=== PATIENT | female | born 1990 | race African-American/Black ===

== ENCOUNTER 2020-03-03 00:03 | Inpatient (IN) | payer MEDICAID ==
[~2020-03-03] VITALS: Ht 165.1 cm; Wt 84.4 kg
[2020-03-03] MEDS ORDERED: DEXT 5%/LR + PITOCIN 20UNITS/L 1,000 ML IV SCH (01:27)
[2020-03-03] MEDS ORDERED: PNV1TABL76 PO (01:28)
[2020-03-03] MEDS ORDERED: NALOXONE HCL 0.4 MG/ML 1ML VIAL IM PRN (01:30)
[2020-03-03] MEDS ORDERED: METHYLERGONOVINE MALEATE 0.2 MG/ML IM PRN (01:30)
[2020-03-03] MEDS ORDERED: CARBOPROST TROMETHAMINE 250 MCG/ML AMPUL IM PRN (01:30)
[2020-03-03] MEDS ORDERED: LIDOCAINE HCL 1% 20ML VIAL (Pyxis) INJ INFIL SCH (01:30)
[2020-03-03] MEDS ORDERED: BUTORPHANOL TARTRATE 2 MG/ML VIAL IV PRN (01:30)
[2020-03-03 03:02] LABS: BASOPHILS % 0.5 % (0.0-2.0); EOSINOPHILS % 0.7 % (0.0-5.0); HEMATOCRIT. 32.9 % (36.0-48.0); HEMOGLOBIN. 11.1 g/dL (12.0-16.0); LYMPHOCYTES % 26.1 % (20.0-50.0); MEAN CORPUSCULAR VOLUME 94.7 fL (81.0-99.0); MEAN PLATELET VOLUME 9.2 fl (7.4-10.4); MONOCYTES % 7.2 % (2.0-8.0); NEUTROPHILS % 65.5 % (40.0-76.0); PLATELET 185 x1000/uL (130-400); RED BLOOD CELL COUNT 3.47 mill/uL (4.2-5.4); RED CELL DISTRIBUTION WIDTH 15.7 % (11.6-14.6)
[2020-03-03 03:12] LABS: INR 0.9; PARTIAL THROMBOPLASTIN TIME 23.6 sec (23.4-31.0); PROTHROMBIN TIME 9.8 sec (9.6-11.0)
[2020-03-03 03:37] LABS: HEPATITIS B SURFACE ANTIGEN NEGATIVE
[2020-03-03] MEDS ORDERED: DEXT 5%/LR + PITOCIN 20UNITS/L 1,000 ML IV ONE (05:45)
[2020-03-03] MEDS: LACTATED RINGERS 1,000 ML IV SCH ×4 (07:21→15:56)
[2020-03-03] MEDS ORDERED: FENTANYL CITRATE/PF 50MCG/ML 2ML VIAL ONE (08:41)
[2020-03-03] MEDS ORDERED: BUPIVACAINE HCL/PF 0.25% (2.5MG/ML) 10ML ONE (08:42)
[2020-03-03] MEDS ORDERED: ROPIVACAINE HCL 2MG/ML (0.2%) 200ML BOTTLE IR ONE (08:45)
[2020-03-03] MEDS ORDERED: ROPIVACAINE HCL/PF EPIDURAL 200 ML EPI ONE (09:15)
[2020-03-03] MEDS ORDERED: EPHEDRINE SULFATE 50MG/ML VIAL ONE (16:48)
[2020-03-03] MEDS ORDERED: ONDANSETRON HCL 4MG/2ML INJ ONE (16:48)
[2020-03-03] MEDS ORDERED: SODIUM CHLORIDE 0.9% 10ML VIAL ONE (16:48)
[2020-03-04] MEDS ORDERED: BUPIVACAINE HCL/PF 0.25% (2.5MG/ML) 10ML ONE (01:02)
[2020-03-04] MEDS ORDERED: FENTANYL CITRATE/PF 50MCG/ML 2ML VIAL ONE (01:02)
[2020-03-04] MEDS ORDERED: METHYLERGONOVINE MALEATE 0.2 MG/ML ONE (09:49)
[2020-03-04 11:00] VITALS: BP 118/71
[2020-03-04] MEDS ORDERED: ACETAMINOPHEN WITH CODEINE 300/30MG TABLET PO NR (15:00)
[2020-03-04 17:55] VITALS: BP 119/75
[2020-03-04 19:30] VITALS: BP 110/68
[2020-03-04] MEDS ORDERED: HEMORRHOIDAL SUPP PR PRN (20:00)
[2020-03-04] MEDS ORDERED: LANOLIN OINT 7GM TUBE TOP PRN (20:00)
[2020-03-04] MEDS ORDERED: GLYCERIN/WITCH HAZEL LEAF MEDICATED PAD TOP PRN (20:00)
[2020-03-04] MEDS ORDERED: BISACODYL 10MG SUPP PR PRN (20:00)
[2020-03-04] MEDS ORDERED: ACETAMINOPHEN WITH CODEINE 300/30MG TABLET PO PRN (20:00)
[2020-03-04] MEDS ORDERED: IBUPROFEN 400MG TABLET PO PRN (20:00)
[2020-03-04] MEDS ORDERED: BENZOCAINE/LANOLIN/ALOE VERA SPRAY TOP PRN (20:00)
[2020-03-04] MEDS ORDERED: DIPHENHYDRAMINE 25MG CAPSULE PO PRN (20:00)
[2020-03-04] MEDS ORDERED: DEXT 5%/LR + PITOCIN 20UNITS/L 1,000 ML IV SCH (20:30)
[2020-03-04] MEDS ORDERED: DOCUSATE SODIUM 100MG CAPSULE PO SCH (21:00)
[2020-03-04] MEDS: MAGNESIUM/ALUMINUM HYDROXIDE/SIMETHICONE 30ML UDC PO SCH (21:20)
[2020-03-04] MEDS: SIMETHICONE 80MG TABLET CHEW PO SCH (21:20)
[2020-03-04] MEDS: IBUPROFEN 800MG TABLET PO PRN (21:39)
[2020-03-05 04:00] VITALS: BP 105/69
[2020-03-05 06:26] LABS: BASOPHILS % 0.3 % (0.0-2.0); EOSINOPHILS % 0.8 % (0.0-5.0); HEMATOCRIT. 31.9 % (36.0-48.0); HEMOGLOBIN. 10.9 g/dL (12.0-16.0); LYMPHOCYTES % 21.2 % (20.0-50.0); MEAN CORPUSCULAR HEMOGLOBIN 32.4 pg (28.0-32.0); MEAN CORPUSCULAR VOLUME 94.5 fL (81.0-99.0); MEAN PLATELET VOLUME 9.1 fl (7.4-10.4); MONOCYTES % 9.8 % (2.0-8.0); NEUTROPHILS % 67.9 % (40.0-76.0); PLATELET 174 x1000/uL (130-400); RED BLOOD CELL COUNT 3.37 mill/uL (4.2-5.4); RED CELL DISTRIBUTION WIDTH 15.4 % (11.6-14.6)
[2020-03-05] MEDS ORDERED: FERROUS SULFATE 325MG TABLET PO SCH (07:30)
[2020-03-05 07:32] LABS: CLARITY URINE TURBID (CLEAR); KETONES URINE TRACE (NEGATIVE); LEUKOCYTE ESTERASE URINE 3+ (NEGATIVE); NITRITE URINE NEGATIVE (NEGATIVE); OCCULT BLOOD URINE 3+ (NEGATIVE); PROTEIN URINE 2+ (NEGATIVE); SPECIFIC GRAVITY URINE 1.011 (1.005-1.030)
[2020-03-05 07:36] LABS: COLOR URINE BLOODY (YELLOW)
[2020-03-05 07:50] LABS: *AMPHETAMINES SCREEN URINE NEGATIVE (NEGATIVE); *BARBITURATES SCREEN URINE NEGATIVE (NEGATIVE); *BENZODIAZEPINES SCREEN URINE NEGATIVE (NEGATIVE); *COCAINE SCREEN URINE NEGATIVE (NEGATIVE); METHADONE URINE SCREEN NEGATIVE (NEGATIVE)
[2020-03-05 07:51] LABS: CANNABINOID URINE SCREEN NEGATIVE (NEGATIVE); PHENCYCLIDINE URINE SCREEN NEGATIVE (NEGATIVE)
[2020-03-05 08:00] VITALS: BP 100/58
[2020-03-05] MEDS: SIMETHICONE 80MG TABLET CHEW PO SCH (08:41)
[2020-03-05] MEDS: MAGNESIUM/ALUMINUM HYDROXIDE/SIMETHICONE 30ML UDC PO SCH (08:42)
[2020-03-05] MEDS: IBUPROFEN 800MG TABLET PO PRN (08:42)
[2020-03-05 08:45] LABS: OPIATES URINE SCREEN PRESUMTIVE POSITIVE (NEGATIVE)
[2020-03-05] MEDS ORDERED: PRENATAL VIT/FE FUMARATE/FA TABLET PO SCH (09:00)
[2020-03-09 04:07] LABS: OPIATES CONFIRMATION URINE Positive (.)
== END 2020-03-05 12:50 | disposition home or self-care (01) | DRG 560 ==
LOC: 8 EST LDRP 00:03 → OBSVTOIN 00:03 → 8EST 03-04 13:34
PROVIDERS: ADMIT Obstetrics & Gynecology; ATTEND Obstetrics & Gynecology
PROC: 10E0XZZ Delivery of Products of Conception, External Approach (ICD-10-PCS; principal; 2020-03-04)
PROC: 3E0R3BZ Introduction of Anesthetic Agent into Spinal Canal, Percutaneous Approach (ICD-10-PCS; 2020-03-04)
PROC: 00HU33Z Insertion of Infusion Device into Spinal Canal, Percutaneous Approach (ICD-10-PCS; 2020-03-04)
PROC: 0KQM0ZZ Repair Perineum Muscle, Open Approach (ICD-10-PCS; 2020-03-04)
DX: O70.1 Second degree perineal laceration during delivery (principal); Z37.0 Single live birth
CPT/HCPCS: 36415; 80305; 80361; 81003; 85025; 86592; 86703; 86762; 86850; 86900; 87340; 99281; G0378; J0595; J2210; J2405; J2590; J2795; J3010; J3490; J7120

== ENCOUNTER 2020-09-06 11:39 | Emergency (ER) | payer MEDICAID ==
[~2020-09-06] VITALS: Ht 165.1 cm; Wt 73.0 kg
[2020-09-06] MEDS ORDERED: ONDANSETRON 4MG ODT PO STA (13:05)
[2020-09-06] MEDS ORDERED: IBUPROFEN 600MG TABLET PO STA (13:05)
[2020-09-06 13:27] LABS: CLARITY URINE CLEAR (CLEAR); COLOR URINE YELLOW (YELLOW); KETONES URINE NEGATIVE (NEGATIVE); LEUKOCYTE ESTERASE URINE 2+ (NEGATIVE); NITRITE URINE NEGATIVE (NEGATIVE); OCCULT BLOOD URINE 3+ (NEGATIVE); PH URINE 5.5 (4.5-8.0); PROTEIN URINE TRACE (NEGATIVE); SPECIFIC GRAVITY URINE 1.016 (1.005-1.030)
[2020-09-06] MEDS ORDERED: SULF1TAB48 PO (13:41)
[2020-09-06] MEDS ORDERED: ONDA4TAB5 MT (13:41)
[2020-09-06] MEDS ORDERED: NAPR-681 MT (13:41)
[2020-09-06 13:59] VITALS: BP 150/90
== END 2020-09-06 14:02 | disposition home or self-care (01) ==
LOC: ER 11:47
DX: R51.9 Headache, unspecified (principal); N39.0 Urinary tract infection, site not specified; R03.0 Elevated blood-pressure reading, without diagnosis of hypertension
CPT/HCPCS: 81003; 81025; 99283; Q0162

== ENCOUNTER 2020-10-26 09:59 | Emergency (ER) | payer MEDICAID ==
[~2020-10-26] VITALS: Ht 165.1 cm; Wt 77.0 kg
[~2020-10-26 09:59] MED LIST: NAPR-681 MT; ONDA4TAB5 MT; SULF1TAB48 PO
[2020-10-26] MEDS ORDERED: AMOX-424 PO (10:56)
[2020-10-26] MEDS ORDERED: IBUP-2028 PO (10:56)
[2020-10-26] MEDS ORDERED: KETOROLAC 60MG/2ML VIAL IM ONE (11:00)
[2020-10-26] MEDS ORDERED: ACETAMINOPHEN 325MG TABLET PO ONE (11:00)
[2020-10-26 11:27] VITALS: BP 132/86
== END 2020-10-26 11:57 | disposition home or self-care (01) ==
LOC: ER 09:59
DX: J02.0 Streptococcal pharyngitis (principal)
CPT/HCPCS: 81025; 87070; 87430; 96372; 99283; J1885